=== PATIENT | male | born 1995 | race Caucasian/White ===

== ENCOUNTER 2020-08-20 20:59 | Emergency (ER) | payer SELFPAY ==
[2020-08-20 21:04] VITALS: BP 162/87; PULSE 84; RESP 17; TEMP 36.6; O2SAT 98; BMI 22.3
--- NOTE | 2020-08-20 21:16 | ED_ITS ---
HPI - COVID General: Chief Complaint: COVID symptoms Stated Complaint: unable to urinate Time Seen by Provider: 08/20/20 21:10 Triage information: Has fever, cough or shortness of breath . No known COVID + exposure last 14 days History of Present Illness: HPI Narrative: Patient states he had a cough since he coughed and threw up with his cough Thursday was fine said he is fine Thursday he is coughing and threw up today he was fine but started coughing his afternoon threw up again with a cough denies any fever chills difficulty urination just had urine is much today feels good not cough anything MD complaint: other Prior covid testing: no COVID 19 common symptoms: positive non-productive cough and vomiting; negative fever(s), chills, body aches, headache(s), throat pain or nasal congestion COVID 19 other sytmptoms: negative chest pain Onset (ago): day(s) Severity: mild Treatment prior to arrival: none COVID Results: No Data to Display Review of Systems Const: Denies: fever(s), chills or body aches Eyes: Denies: change in vision or blurry vision ENMT: Denies: throat pain or nasal congestion Card: Denies: chest pain or dyspnea on exertion Resp: Reports: non-productive cough GI: Reports: vomiting : Denies: difficulty urinating Musc: Denies: extremity pain Skin/Breast: Denies: rash Neuro: Denies: headache(s) Psych: Denies: anxiety or depression Jw/Lymph: Denies: easy bruising Physical Exam Const: COMMON NORMALS: no acute distress, average body habitus and patient oriented x3 HENMT: COMMON NORMALS: normocephalic HEAD & SCALP: normal to inspection and normocephalic FACE & SINUS: normal facial exam Eye: COMMON NORMALS: conjunctivae normal GENERAL EYE: appearance normal, both eyes and all related structures CONJUNCTIVA: Yes conjunctivae normal Neck/C-Spine: COMMON NORMALS: no JVD Chest: COMMONS NORMALS: normal inspection of the chest Resp: COMMON NORMALS: normal respiratory effort Cardio: COMMON NORMALS: no JVD GI: COMMON NORMALS: Normal to inspection, nondistended, normoactive bowel sounds present Extremity: COMMON NORMALS: normal to inspection and full ROM Neuro: COMMON NORMALS: patient oriented x3 Course Vital Signs: Vital signs: Vital Signs Temperature 97.8 F 08/20/20 21:04 Pulse Rate 85 08/20/20 21:20 Respiratory Rate 17 08/20/20 21:20 Blood Pressure 162/87 08/20/20 21:20 Pulse Oximetry 98 08/20/20 21:21 MDM - COVID Lab Data COVID Results: No Data to Display Discharge Plan Discharge Patient Disposition: Home Clinical Impression: Cough Condition: Stable Prescriptions: New Tessalon Perles 100 mg capsule 100 mg PO Q6H PRN (Reason: cough) Qty: 14 RF: 0 Zofran 4 mg tablet 4 mg PO Q8H 2 Days Qty: 6 RF: 0 Discharge Orders: Discharge Order (Routine); Ordered 08/20/20 Ordered By: Abebe Rivera Discharge Diet: Usual diet Discharge Activity: Increase activity as tolerated Patient Instructions: Acute Cough (ED) Activity Restrictions/Additional Instructions: Follow-up with medical provider as directed. Take medications as prescribed. Return to the ER or your medical provider if condition worsens. Please read and understand discharge instructions. If any questions ask please. Discharge Date/Time: 08/20/20 21:29 Coding Level of Care Code ED Broadcast Operations Director for João Fwd Exam Comprehensive
[2020-08-20 21:20] VITALS: BP 162/87; PULSE 85; RESP 17; O2SAT 97
[2020-08-20] MEDS: ondansetron 4 MG Tablet PO (21:20)
[2020-08-20] MEDS: benzonatate 100 mg Capsule 200 MG PO (21:20)
[2020-08-20 21:21] VITALS: O2SAT 98
== END 2020-08-20 21:29 | disposition home or self-care (01) ==
LOC: ER 21:22
PROVIDERS: Emergency Provider Nurse Practitioner Family
DX: R05 Cough (principal)
CPT/HCPCS: 12345; 99281; 99283; Q0162

== ENCOUNTER 2021-11-05 14:28 | Emergency (ER) | payer SELFPAY ==
[2021-11-05 14:36] VITALS: BP 127/75; PULSE 105; RESP 15; TEMP 37; O2SAT 99; BMI 22.3
--- NOTE | 2021-11-05 17:27 | W.ED.GENADLT ---
HPI - General Adult General: Chief complaint: General Medical Stated complaint: headache, body aches Time Seen by Provider: 11/05/21 17:26 History of Present Illness: HPI narrative: 26-year-old male patient comes in today with complaints of generalized body aches and some abdominal cramping. Patient reports no elevation and fever. Patient works at [employer]. Patient states his roommates have also been ill. Patient appears mildly unwell but not toxic. Patient denies any chronic medical problems. Review of Systems General: Reports: 10 or more systems reviewed and unremarkable except in HPI and below Musc: Reports: muscle cramps Physical Exam Const: COMMON NORMALS: patient oriented x3 GENERAL APPEARANCE: cooperative HENMT: COMMON NORMALS: normocephalic, TM's normal bilaterally and Normal external nose present HEAD & SCALP: normal to inspection and normocephalic NOSE: Normal external nose present TYMPANIC MEMBRANE: TM's normal bilaterally MOUTH: Normal oral and palatal mucosa present THROAT: posterior oropharynx normal Eye: GENERAL EYE: appearance normal, both eyes and all related structures Neck/C-Spine: COMMON NORMALS: full ROM Lymph: LYMPHATIC: no lymphadenopathy noted Resp: COMMON NORMALS: normal respiratory effort and clear to auscultation bilaterally EFFORT & INSPECTION: Yes able to speak in complete sentences AUSCULTATION: clear to auscultation bilaterally Cardio: COMMON NORMALS: regular rate and regular rhythm RATE: regular rate RHYTHM: regular rhythm GI: COMMON NORMALS: non-tender AUSCULTATION: Yes normoactive bowel sounds : COMMON NORMALS: Yes no CVA tenderness BLADDER/KIDNEY EXAM: Yes no CVA tenderness Back/Pelvis: COMMON NORMALS: no CVA tenderness and thoracic and lumbar spine normal to inspection Extremity: COMMON NORMALS: normal to inspection Neuro: COMMON NORMALS: patient oriented x3 and moves all extremities Psych: COMMON NORMALS: mental status grossly normal and cooperative Skin: COMMON NORMALS: no rashes or lesions noted GENERAL SKIN EXAM: no rashes or lesions noted Course Vital Signs: Vital signs: Vital Signs Temperature 98.6 F 11/05/21 14:36 Pulse Rate 105 H 11/05/21 14:36 Respiratory Rate 15 11/05/21 14:36 Blood Pressure 127/75 11/05/21 14:36 Pulse Oximetry 99 11/05/21 14:36 MDM - General Adult MDM Narrative: Medical decision making narrative: 26-year-old male patient comes in today for complaints of body aches and malaise. Patient also has some abdominal cramping. On exam abdomen soft nontender. Bowel sounds are present. Lungs clear to auscultation. Vital signs are normal except for some elevation in pulse at 105. Differential diagnosis includes but not limited to viral syndrome, influenza, COVID-19, gastroenteritis. COVID-19 test was positive, influenza was negative. Encourage plenty of fluids Tylenol and ibuprofen for pain and fever. Recommended follow-up for worsening symptoms such as increased shortness of breath, or chest pain. Patient reported understanding of care plan need for follow-up or return to the ER. Work note was written for 10 days. Lab Data: Labs: Lab Results 11/05/21 11/05/21 18:01 18:01 Influenza Type A A g Negative (Negative) Influenza Type B A g Negative (Negative) SARS-CoV-2 Ag (Rap id) Positive H (Negative) Discharge Plan Discharge Patient Disposition: Home Clinical Impression: COVID-19 Condition: Stable Prescriptions: No Action Tessalon Perles 100 mg capsule 100 mg PO Q6H PRN (Reason: cough) Qty: 14 RF: 0 Discharge Orders: Discharge ED (Routine); Ordered 11/05/21 Ordered By: Boyd Manriquez Discharge Diet: Usual diet Discharge Activity: Increase activity as tolerated Patient Instructions: Viral Syndrome (ED), Opioid Safety Activity Restrictions/Additional Instructions: Drink plenty of fluids. Tylenol and ibuprofen for pain and fever. Activity as tolerated. Follow-up with primary care as needed. I would recommend quarantining yourself for at least 10 days from the start of symptoms. Stand Alone Forms: Work/School Release Coding Level of Care Code ED Cartridge Maker for Chg Fwd Exam Comprehensive
[2021-11-05 18:38] LABS: Influenza A by IFA Negative (Negative); Influenza B by IFA Negative (Negative); SARS Covid-2 Antigen Positive (Negative)
== END 2021-11-05 19:03 | disposition home or self-care (01) ==
PROVIDERS: Nurse Practitioner Family; Emergency Provider Nurse Practitioner Family
DX: U07.1 COVID-19 (principal)
CPT/HCPCS: 87426; 87804; 99282

== ENCOUNTER 2022-03-28 18:41 | Emergency (ER) | payer SELFPAY ==
[2022-03-28 19:18] VITALS: BP 137/78; PULSE 87; RESP 16; TEMP 36.6; O2SAT 95; BMI 21.5
== END 2022-03-28 23:38 | disposition left against medical advice (07) ==
PROVIDERS: Emergency Provider Family Medicine
DX: Z53.21 Procedure and treatment not carried out due to patient leaving prior to being seen by health care provider (principal); R11.2 Nausea with vomiting, unspecified

== ENCOUNTER 2024-10-21 10:12 | Emergency (ER) | payer BC, MEDICAID, SELFPAY ==
[2024-10-21 10:23] VITALS: BP 137/83; PULSE 86; RESP 20; TEMP 36.7; O2SAT 100
[2024-10-21 10:48] LABS: Basophils % 1.2 %; Eosinophils % 1.2 %; Hematocrit 47.2 % (37-53); Lymphocytes # 1.3 10^3/uL (0.8-4.8); Lymphocytes % 39.2 %; Mean Corpuscular HGB Conc 33.7 g/dL (30-55); Mean Corpuscular Hemoglobin 29.9 pg (27-33); Mean Corpuscular Volume 88.9 fl (82-101); Mean Platelet Volume 10.2 fL (7.4-10.4); Monocytes # 0.6 10^3/uL (0.2-0.9); Monocytes % 18.7 %; Neutrophils # 1.33 10^3/uL (1.8-7.7); Neutrophils % 39.4 %; Nucleated Red Blood Cells % 0 %; Platelet Count 190 10^3/cmm (157-399); Red Blood Count 5.31 10^6/uL (3.85-5.65); Red Cell Distribution Width 12.8 % (12.1-15.1); White Blood Count 3.37 10^3/uL (3.29-11.43)
--- NOTE | 2024-10-21 10:53 | ED_ITS ---
HPI - Abdominal Pain 2 General: Chief Complaint: Abdominal Pain Stated Complaint: abd pain Time Seen by Provider: 10/21/24 10:15 History of Present Illness: 29-year-old male presents emergency comp laining of abdominal discomfort he said and intermittently associated with spicy foods salt heavily salted foods for the last few months. He is also noticed some occasional coffee-ground emesis no melena no hematochezia. No fever sweats or chills he occasionally will take a Tums to help relieve his symptoms but he has not tried any proton pump inhibitor or H2 blockers Associated Symptoms: Reports coffee ground emesis, nausea and vomiting; Denies chills, dysuria and fever(s) Related Data Previous Rx's Medication Instructions Recorded pantoprazole 40 mg tablet,delayed 40 mg PO BID 10 days #40 tabs 10/21/24 release sucralfate 1 gram tablet 1 g PO Q6H PRN Stomach 10/21/24 upset/indigestion/reflux 4 weeks #200 tabs Allergies Allergy/AdvReac Type Severity Reaction Status Date / Time No Known Allergies Allergy Verified 08/20/20 21:07 Review of Systems 2 Const: Denies: fever(s) or chills Card: Denies: chest pain Resp: Denies: dyspnea GI: Reports: abdominal pain, nausea, vomiting and coffee ground emesis : Denies: dysuria, urinary frequency or urinary urgency Musc: Denies: neck pain or back pain Skin/Breast: Denies: rash Physical Exam 2 Const: COMMON NORMALS: no acute distress GENERAL APPEARANCE: cooperative and comfortable ORIENTATION/CONSCIOUSNESS: Yes awake, Yes oriented to person, Yes oriented to place and Yes oriented to time HENMT: COMMON NORMALS: normocephalic, atraumatic and hearing grossly normal bilaterally HEAD & SCALP: normocephalic and atraumatic Resp: COMMON NORMALS: normal respiratory effort, No retractions, No use of accessory muscles and clear to auscultation bilaterally AUSCULTATION: clear to auscultation bilaterally Cardio: COMMON NORMALS: regular rate, regular rhythm and No murmurs present (Cardio) RATE: regular rate RHYTHM: regular rhythm GI: COMMON NORMALS: Soft to palpation and No hepatosplenomegaly present A USCULTATION: Yes normoactive bowel sounds PALPATION: Yes Soft to palpation, No Tenderness to palpation present (GI), No Guarding due to palpation present (GI) and Yes No hepatosplenomegaly present Extremity: COMMON NORMALS: normal to inspection, capillary refill normal, no clubbing, cyanosis or edema, no calf tenderness and no pedal edema Neuro: SENSORIUM/ORIENTATION: Yes oriented to person, Yes oriented to place and Yes oriented to time Skin: COMMON NORMALS: no rashes or lesions noted GENERAL SKIN EXAM: no rashes or lesions noted Course 2 Vital Signs: Vital signs: Vital Signs Temperature 98.1 F 10/21/24 10:23 Pulse Rate 76 10/21/24 11:43 Respiratory Rate 20 H 10/21/24 10:23 Blood Pressure 118/74 10/21/24 11:43 Pulse Oximetry 96 10/21/24 11:43 Oxygen Delivery Me thod Room Air 10/21/24 10:23 MDM - Abdominal Pain Medical Decision Making No signs of acute GI bleed. Reviewed dietary recommendations started on pantoprazole 40 twice daily for 10 days then 40 daily sulcal fate to use as needed in between. Refer to general surgery for possible EGD Lab Data I reviewed the patient's lab results. 10/21/24 10:38 10/21/24 10:38 Labs/Radiology: Laboratory Results WBC 3.37 10^3/uL (3.29-11.43) 10/21/24 10:38 RBC 5.31 10^6/uL (3.85-5.65) 10/21/24 10:38 Hgb 15.90 g/dL (11.27-16.99) 10/21/24 10:38 Hct 47.2 % (37-53) 10/21/24 10:38 MCV 88.9 fl (82-101) 10/21/24 10:38 MCH 29.9 pg (27-33) 10/21/24 10:38 MCHC 33.7 g/dL (30-55) 10/21/24 10:38 RDW 12.8 % (12.1-15.1) 10/21/24 10:38 Plt Count 190 10^3/cmm (157-399) 10/21/24 10:38 MPV 10.2 fL (7.4-10.4) 10/21/24 10:38 Neut % (Auto) 39.4 % 10/21/24 10:38 Lymph % (Auto) 39.2 % 10/21/24 10:38 Lander % (Auto) 18.7 % 10/21/24 10:38 Eos % (Auto) 1.2 % 10/21/24 10:38 Baso % (Auto) 1.2 % 10/21/24 10:38 Neut # (Auto) 1.33 10^3/uL (1.8-7.7) L 10/21/24 10:38 Lymph # (Auto) 1.3 10^3/uL (0.8-4.8) 10/21/24 10:38 Lander # (Auto) 0.6 10^3/uL (0.2-0.9) 10/21/24 10:38 Eos # (Auto) 0.0 10^3/uL (0.0-0.8) 10/21/24 10:38 Baso # (Auto) 0.0 10^3/uL (0.0-0.1) 10/21/24 10:38 Nucleated RBC % (auto) 0 % 10/21/24 10:38 Nucleated RBCs # 0.0 /100WBC 10/21/24 10:38 Sodium 138 mmol/L (136-145) 10/21/24 10:38 Potassium 3.5 mmol/L (3.5-5.1) 10/21/24 10:38 Chloride 99 mmol/L (98-107) 10/21/24 10:38 Carbon Dioxide 28 mmol/L (22-29) 10/21/24 10:38 Anion Gap 14.5 (5-19) 10/21/24 10:38 BUN 9 mg/dL (6-20) 10/21/24 10:38 Creatinine 0.9 mg/dL (0.7-1.2) 10/21/24 10:38 GFR Calculation 99.1 mL/min (90-130) 10/21/24 10:38 Glucose 103 mg/dL (65-115) 10/21/24 10:38 Calculated Osmolality 285 mOsm/kg (285-295) 10/21/24 10:38 Calcium 8.9 mg/dL (8.5-10.5) 10/21/24 10:38 Total Bilirubin 0.3 mg/dL (0.15-1.2) 10/21/24 10:38 AST 37 U/L (0-40) 10/21/24 10:38 ALT 18 U/L (0-41) 10/21/24 10:38 Alkaline Phosphatase 62 U/L (40-130) 10/21/24 10:38 Total Protein 7.2 g/dL (6.6-8.7) 10/21/24 10:38 Albumin 4.7 g/dL (3.5-5.2) 10/21/24 10:38 Globulin 2.5 g/dL (1.3-4.6) 10/21/24 10:38 Lipase 14 U/L (13-60) 10/21/24 10:38 Urine Color Yellow (Yellow) 10/21/24 11:09 Urine Appearance Clear (CLEAR) 10/21/24 11:09 Urine pH 6.5 (5-7) 10/21/24 11:09 Ur Specific [place] 1.019 (1.005-1.030) 10/21/24 11:09 Urine Protein Negative (Negative) 10/21/24 11:09 Urine Glucose (UA) Negative (Normal) 10/21/24 11:09 Urine Ketones Trace (Negative) 10/21/24 11:09 Urine Blood Negative (Negative) 10/21/24 11:09 Urine Nitrate Negative (Negative) 10/21/24 11:09 Urine Bilirubin Negative (Negative) 10/21/24 11:09 Urine Urobilinogen 1.0 mg/dL (Negative) 10/21/24 11:09 Ur Leukocyte Esterase Negative (Negative) 10/21/24 11:09 Urine RBC 0-2 /hpf (0-2) 10/21/24 11:09 Urine WBC 0-5 /hpf (0-5) 10/21/24 11:09 Ur Squamous Epith Cells 0-5 /hpf (0-5) 10/21/24 11:09 Amorphous Sediment Not Reportable 10/21/24 11:09 Urine Bacteria None seen /hpf (NONE) 10/21/24 11:09 Hyaline Casts 0-4 /lpf H 10/21/24 11:09 No radiology studies performed this visit Discharge Plan Discharge Patient Disposition: Home Clinical Impression: GERD (gastroesophageal reflux disease) Condition: Stable Prescriptions: New pantoprazole 40 mg tablet,delayed release (DR/EC) 40 mg PO BID 10 Days Qty: 40 0RF sucralfate 1 gram tablet 1 g PO Q6H PRN (Reason: Stomach upset/indigestion/reflux) 28 Days Qty: 200 0RF Discharge Orders: Discharge ED (Routine); Ordered 10/21/24 Ordered By: Juan A Denny Discharge Diet: As Directed Discharge Activity: Resume usual activity Patient Instructions: Diet for Stomach Ulcers and Gastritis (ED), GERD (Gastroesophageal Reflux Disease) (ED), Opioid Safety, Pain Management Activity Restrictions/Additional Instructions: Thank you for choosing [facility] for your healthcare needs today. It is very important that you follow up as instructed or that you return to the Emergency Department should you have concerns or if your condition changes or worsens in any way. You are seen in the emergency room with complaints of vomiting [id number] material. There is no sign of an active GI bleed on your lab work. Recommend avoiding spicy foods alcohol carbonated beverages tomato based products and fried foods. Diet recommendations were given to you. Recommend starting on pantoprazole 1 tablet twice a day for 10 days then 1 tablet daily in addition you can use the sulcrafate as needed Coding Level of Care Code ED Hospital Admissions Clerk for João Carlos
[2024-10-21 11:05] LABS: Alanine Aminotransferase 18 U/L (0-41); Albumin Level 4.7 g/dL (3.5-5.2); Alkaline Phosphatase 62 U/L (40-130); Anion Gap 14.5 (5-19); Aspartate Amino Transferase 37 U/L (0-40); Blood Urea Nitrogen 9 mg/dL (6-20); Calcium 8.9 mg/dL (8.5-10.5); Carbon Dioxide 28 mmol/L (22-29); Chloride 99 mmol/L (98-107); Creatinine Clr Calc Pharmacy 120.5512; Globulin 2.5 g/dL (1.3-4.6); Glomerular Filtration Rate 99.1 mL/min (90-130); Glucose 103 mg/dL (65-115); Lipase 14 U/L (13-60); Osmolality Calculated 285 mOsm/kg (285-295); Potassium 3.5 mmol/L (3.5-5.1); Sodium 138 mmol/L (136-145); Total Bilirubin 0.3 mg/dL (0.15-1.2); Total Protein 7.2 g/dL (6.6-8.7)
[2024-10-21] MEDS: lidocaine 2% viscous 15 ML, aluminum-mag hydrox-simethicon 30 ML, sucralfate oral liq 1 GM PO (11:07)
[2024-10-21 11:19] LABS: Bilirubin Urine Negative (Negative); Blood Urine Negative (Negative); Glucose Urine UA Negative (Normal); Ketones Urine Trace (Negative); Leukocyte Esterase Urine Negative (Negative); Nitrate Urine Negative (Negative); Protein Urine Negative (Negative); Specific Gravity, Urine 1.019 (1.005-1.030); Urine Appearance Clear (CLEAR); Urine Color Yellow (Yellow); pH Urine 6.5 (5-7)
[2024-10-21 11:24] LABS: Add Urine Microscopic? YES; Bacteria Urine None Seen /hpf; Hyaline Casts Urine 0-4 /lpf; RBC Urine 0-2 /hpf (0-2); Squamous Epithelial Cell Urine 0-5 /hpf (0-5); WBC Urine 0-5 /hpf (0-5)
[2024-10-21 11:43] VITALS: BP 118/74; PULSE 76; O2SAT 96
--- NOTE | 2024-10-24 07:14 | DCPLANNER ---
messaged gen sx for er f/u
== END 2024-10-21 11:49 | disposition home or self-care (01) ==
PROVIDERS: Physician Assistant; Emergency Provider Family Medicine
DX: K21.9 Gastro-esophageal reflux disease without esophagitis (principal)
CPT/HCPCS: 36415; 80053; 81001; 83690; 85025; 99283